=== PATIENT | female | born 2000 | race Hispanic/Latino ===

== ENCOUNTER 2023-02-28 18:48 | Emergency (ER) | payer BC, OTHER ==
[~2023-02-28] VITALS: Ht 160 cm; Wt 62.1 kg
[~2023-02-28 18:48] MED LIST: IBUPROFEN400 MG PO
[2023-02-28 23:15] VITALS: BP 109/79
== END 2023-02-28 23:15 | disposition home or self-care (01) ==
LOC: ED 18:48
DX: N83.01 Follicular cyst of right ovary (principal)
CPT/HCPCS: 36415; 76830; 76856; 80053; 81003; 83690; 83735; 84703; 85025; 99284 25